=== PATIENT | male | born 1935 | race Caucasian/White ===

== ENCOUNTER 2019-08-06 15:24 | Outpatient (CLI) | payer MEDICARE ==
--- NOTE | 2019-08-06 15:53 | RAD ---
EXAM: Lumbar spine: 4 views INDICATIONS: Sacroiliac inflammation. Low back pain. COMPARISON: None. FINDINGS: Scoliotic curvature with convexity to right measured at 26 degrees degenerative changes wit h spurring. Mild disc narrowing. Facet hypertrophy. No evidence of spondylolisthesis. Bilateral compression of the L2 vertebra on the left due to scoliotic curvature. IMPRESSION: Scoliosis with degenerative changes as described.
== END 2019-08-06 15:25 | disposition home or self-care (01) ==
LOC: SCSRAD 15:24
PROVIDERS: ATTEND Family Medicine
DX: M46.1 Sacroiliitis, not elsewhere classified (principal); M41.9 Scoliosis, unspecified; M47.816 Spondylosis without myelopathy or radiculopathy, lumbar region
CPT/HCPCS: 72110

== ENCOUNTER 2022-03-07 10:28 | Outpatient (CLI) | payer MEDICARE | END 2022-03-07 10:29 | disposition home or self-care (01) | LOC: SCSCT 10:28 | PROVIDERS: ATTEND Family Medicine | DX: R51.9 Headache, unspecified (principal) | CPT/HCPCS: 70450 ==

== ENCOUNTER 2022-06-22 08:41 | Outpatient (CLI) | payer OTHER ==
[2022-06-22] MEDS ORDERED: Iopamidol 370 76% 100 ML VIAL ONE (09:54)
== END 2022-06-22 08:42 | disposition home or self-care (01) ==
LOC: CT 08:41
PROVIDERS: ATTEND Urology
DX: C61 Malignant neoplasm of prostate (principal)
CPT/HCPCS: 74177; 78306; 82565; A9503; Q9967

== ENCOUNTER 2022-10-02 07:55 | Inpatient (IN) | payer MEDICARE, OTHER ==
[2022-10-02] MEDS ORDERED: FENTANYL 50 MCG/ML 1 ML VIAL ONE ×3 (08:22→12:03)
[2022-10-02] MEDS ORDERED: Ondansetron PF 4 MG/2 ML Vial ONE (08:37)
[2022-10-02 09:14] LABS: #Eosinphils 0.1 thou/uL (0.0-0.7); #Lymphocytes 1.3 thou/uL (1.20-3.40); #Monocytes 0.9 thou/uL (0.11-0.59); #Neutrophils 3.9 thou/uL (1.40-6.50); %Basophils 0.3 % (0.0-1.0); %Eosinophils 1.1 % (0.0-10.0); %Lymphocytes 20.9 % (21.0-51.0); %Monocytes 13.7 % (0.0-10.0); Hemoglobin 17.4 g/dL (14.0-18.0); Mean Corpuscular HGB CONC 33.6 g/dL (32.0-36.0); Mean Corpuscular Hemoglobin 33.5 pg (27.0-31.0); Mean Corpuscular Volume 99.7 fl (78.0-98.0); Mean Platelet Volume 7.5 fL (7.4-10.4); Platelet Count 150 10x3/uL (130-400); RBC Distribution Width 12.3 % (11.5-14.5); Red Blood Cell (RBC) Count 5.18 mill/uL (4.70-6.10); White Blood Cell (WBC) Count 6.2 10x3/uL (4.8-10.8)
[2022-10-02 09:34] LABS: ALT (SGPT) 46 U/L (8-55); AST (SGOT) 55 U/L (5-34); Albumin 4.3 g/dL (3.4-4.8); Alkaline Phosphatase 107 U/L (40-110); Anion Gap 21 mmol/L (10-20); BUN (Urea Nitrogen) 13 mg/dL (8.4-25.7); Bilirubin, Total 0.7 mg/dL (0.2-1.2); Calc. Creatinine Clearance 0 mL/min (70-130); Calcium 10.3 mg/dL (7.8-10.44); Carbon Dioxide 23 mmol/L (23-31); Chloride 102 mmol/L (98-107); Estimated GFR 53; Globulin 3.1 g/dL (2.4-3.5); Glucose 94 mg/dL (83-110); Lipase 27 U/L (8-78); Potassium 4.5 mmol/L (3.5-5.1); Protein, Total 7.4 g/dL (5.8-8.1); Sodium 141 mmol/L (136-145)
[2022-10-02 11:03] LABS: Bilirubin Negative (Negative); Blood, Urine Trace (Negative); Clarity Turbid (Clear); Glucose, Urine (Dipstick) Normal (Negative); Ketone, Urine Trace mg/dL (Negative); Leukocyte Negative Leu/uL (Negative); Nitrite Negative (Negative); Protein, Urine (Dipstick) 30 mg/dL (Neg-Trace); Squamous Epithelial 0-3 HPF (0-3); Urobilinogen Normal mg/dL (Less than 2); pH, Urine 8.5 (5.0-9.0)
[2022-10-02 11:10] LABS: Bacteria/HPF 1+ HPF (None Seen); Specific Gravity, Urine 1.046 (1.002-1.036)
[2022-10-02 11:22] LABS: Actual Bicarbonate (HCO3v) 29 mEq/L (22-28); Base Excess 3.6 mEq/L (-2.0 to +3.0); Calcium, Ionized (venous) 1.16 mmol/L (1.16-1.32); Chloride (VBG) 101 mmol/L (98-106); Hemoglobin (Hb) 13.5 g/dL (12.6-17.4); Potassium (VBG) 4.67 mmol/L (3.70-5.30)
[2022-10-02] MEDS ORDERED: Acetaminophen 650 MG Suppository PR PRN (11:54)
[2022-10-02] MEDS ORDERED: Sodium Chloride 0.9% 1,000 ML IV SCH (12:00)
[2022-10-02 12:27] LABS: Lactic Acid 2.9 mmol/L (0.5-2.2)
[2022-10-02] MEDS ORDERED: Iopamidol-370 76% 500 ML 1 ML ONE (13:46)
[2022-10-02 14:12] VITALS: BMI 24.3
[2022-10-02] MEDS: Sodium Chloride 0.9% 1,000 ML IV SCH (14:38)
[2022-10-02] MEDS: FENTANYL 50 MCG/ML 1 ML VIAL SLOW IVP PRN ×4 (15:06→23:58)
[2022-10-03] MEDS: Sodium Chloride 0.9% 1,000 ML IV SCH ×4 (03:52→20:39)
[2022-10-03] MEDS: FENTANYL 50 MCG/ML 1 ML VIAL SLOW IVP PRN ×4 (04:16→14:12)
[2022-10-03 06:57] LABS: Hemoglobin 13.6 g/dL (14.0-18.0); Mean Corpuscular Hemoglobin 32.7 pg (27.0-31.0); Mean Corpuscular Volume 99.2 fl (78.0-98.0); Mean Platelet Volume 7.2 fL (7.4-10.4); Platelet Count 170 10x3/uL (130-400); RBC Distribution Width 12.1 % (11.5-14.5); Red Blood Cell (RBC) Count 4.16 mill/uL (4.70-6.10); White Blood Cell (WBC) Count 6.3 10x3/uL (4.8-10.8)
[2022-10-03 07:16] LABS: Anion Gap 14 mmol/L (10-20); BUN (Urea Nitrogen) 13 mg/dL (8.4-25.7); Calc. Creatinine Clearance 45 mL/min (70-130); Calcium 8.9 mg/dL (7.8-10.44); Carbon Dioxide 27 mmol/L (23-31); Chloride 105 mmol/L (98-107); Estimated GFR 61; Glucose 110 mg/dL (83-110); Potassium 3.7 mmol/L (3.5-5.1); Sodium 142 mmol/L (136-145)
[2022-10-03 08:24] LABS: Band 3 % (5-11); Eosinophils 1 % (0-10); Lymphocytes 13 % (21-51); MDiff Complete? YES; Monocytes 13 % (0-10); Neutrophil 69 % (42-75); RBC Morphology Normal
[2022-10-03] MEDS: Pantoprazole 40 MG VIAL IVP SCH (09:08)
[2022-10-03] MEDS: Ondansetron PF 4 MG/2 ML Vial IVP PRN ×2 (09:08→14:12)
[2022-10-03] MEDS ORDERED: Sodium Chloride 0.9% 500 ML IV SCH (11:30)
[2022-10-04] MEDS: Sodium Chloride 0.9% 1,000 ML IV SCH ×5 (03:09→21:59)
[2022-10-04 07:26] LABS: Hemoglobin 12.1 g/dL (14.0-18.0); Mean Corpuscular HGB CONC 32.5 g/dL (32.0-36.0); Mean Corpuscular Hemoglobin 32.8 pg (27.0-31.0); Mean Platelet Volume 7.8 fL (7.4-10.4); Platelet Count 162 10x3/uL (130-400); RBC Distribution Width 12.3 % (11.5-14.5); White Blood Cell (WBC) Count 6.2 10x3/uL (4.8-10.8)
[2022-10-04] MEDS: FENTANYL 50 MCG/ML 1 ML VIAL SLOW IVP PRN (07:26)
[2022-10-04 07:44] LABS: ALT (SGPT) 31 U/L (8-55); AST (SGOT) 53 U/L (5-34); Albumin 3.6 g/dL (3.4-4.8); Alkaline Phosphatase 86 U/L (40-110); Anion Gap 15 mmol/L (10-20); BUN (Urea Nitrogen) 18 mg/dL (8.4-25.7); Bilirubin, Total 0.6 mg/dL (0.2-1.2); Calc. Creatinine Clearance 43 mL/min (70-130); Calcium 8.5 mg/dL (7.8-10.44); Carbon Dioxide 25 mmol/L (23-31); Chloride 110 mmol/L (98-107); Estimated GFR 56; Globulin 2.5 g/dL (2.4-3.5); Glucose 94 mg/dL (83-110); Potassium 3.6 mmol/L (3.5-5.1); Protein, Total 6.1 g/dL (5.8-8.1); Sodium 146 mmol/L (136-145)
[2022-10-04] MEDS ORDERED: Lidocaine 2% 6 ML SYR TOP PRN (08:57)
[2022-10-04 09:58] LABS: Eosinophils 1 % (0-10); Lymphocytes 12 % (21-51); MDiff Complete? YES; Monocytes 15 % (0-10); Neutrophil 72 % (42-75); RBC Morphology Normal
[2022-10-04] MEDS ORDERED: LIDOCAINE 5% CREAM TOP SCH (13:15)
[2022-10-04] MEDS: Lidocaine 5% Patch TD SCH (13:31)
[2022-10-04] MEDS: Enoxaparin Sodium 30 MG/0.3 ML SYRINGE SC SCH (13:32)
[2022-10-04] MEDS: Pantoprazole 40 MG VIAL IVP SCH (15:55)
[2022-10-05] MEDS: Transdermal Patch Removal TOP SCH (01:39)
[2022-10-05] MEDS: FENTANYL 50 MCG/ML 1 ML VIAL SLOW IVP PRN ×2 (02:14→06:15)
[2022-10-05] MEDS: Sodium Chloride 0.9% 1,000 ML IV SCH ×5 (05:11→22:22)
[2022-10-05 06:55] LABS: Anion Gap 12 mmol/L (10-20); BUN (Urea Nitrogen) 14 mg/dL (8.4-25.7); Calc. Creatinine Clearance 50 mL/min (70-130); Calcium 8.5 mg/dL (7.8-10.44); Carbon Dioxide 22 mmol/L (23-31); Chloride 111 mmol/L (98-107); Estimated GFR 69; Glucose 97 mg/dL (83-110); Potassium 3.4 mmol/L (3.5-5.1); Sodium 142 mmol/L (136-145)
[2022-10-05 06:56] LABS: Hemoglobin 11.3 g/dL (14.0-18.0); Mean Corpuscular HGB CONC 32.8 g/dL (32.0-36.0); Mean Platelet Volume 7.3 fL (7.4-10.4); Platelet Count 158 10x3/uL (130-400); Red Blood Cell (RBC) Count 3.42 mill/uL (4.70-6.10)
[2022-10-05] MEDS: Gabapentin 300 MG CAP PO SCH ×4 (10:18→20:44)
[2022-10-05] MEDS: Pantoprazole 40 MG VIAL IVP SCH (10:19)
[2022-10-05] MEDS: Enoxaparin Sodium 30 MG/0.3 ML SYRINGE SC SCH (10:19)
[2022-10-05 11:28] LABS: Band 3 % (5-11); Eosinophils 3 % (0-10); Lymphocytes 20 % (21-51); MDiff Complete? YES; Monocytes 9 % (0-10); Neutrophil 65 % (42-75); Platelet Morphology Comment Appears Adequate; Polychromasia SLIGHT = 2-3 cells (100X) (0-2/hpf)
[2022-10-05] MEDS: Lidocaine 5% Patch TD SCH (15:31)
[2022-10-06] MEDS: Transdermal Patch Removal TOP SCH (02:49)
[2022-10-06] MEDS: Sodium Chloride 0.9% 1,000 ML IV SCH ×4 (05:16→22:12)
[2022-10-06 06:16] LABS: Anion Gap 10 mmol/L (10-20); BUN (Urea Nitrogen) 8 mg/dL (8.4-25.7); Calc. Creatinine Clearance 62 mL/min (70-130); Calcium 8.4 mg/dL (7.8-10.44); Carbon Dioxide 23 mmol/L (23-31); Chloride 110 mmol/L (98-107); Estimated GFR 84; Glucose 93 mg/dL (83-110); Potassium 3.3 mmol/L (3.5-5.1); Sodium 140 mmol/L (136-145)
[2022-10-06 06:31] LABS: Hemoglobin 11.1 g/dL (14.0-18.0); Mean Corpuscular HGB CONC 32.8 g/dL (32.0-36.0); Mean Corpuscular Hemoglobin 32.5 pg (27.0-31.0); Mean Corpuscular Volume 99.2 fl (78.0-98.0); Mean Platelet Volume 7.6 fL (7.4-10.4); Platelet Count 138 10x3/uL (130-400); RBC Distribution Width 11.9 % (11.5-14.5)
[2022-10-06] MEDS: Gabapentin 300 MG CAP PO SCH ×3 (09:20→20:34)
[2022-10-06] MEDS: Enoxaparin Sodium 40 MG/0.4 ML SYRINGE SC SCH (09:20)
[2022-10-06] MEDS: Lidocaine 5% Patch TD SCH (09:21)
[2022-10-06] MEDS: Pantoprazole 40 MG VIAL IVP SCH (09:21)
[2022-10-06 11:28] LABS: Band 2 % (5-11); Eosinophils 2 % (0-10); Lymphocytes 26 % (21-51); MDiff Complete? YES; Monocytes 10 % (0-10); Neutrophil 59 % (42-75); Reactive Lymphocytes 1 % (0-10)
[2022-10-06] MEDS: FENTANYL 50 MCG/ML 1 ML VIAL SLOW IVP PRN (12:18)
[2022-10-06] MEDS ORDERED: Sodium Chloride 0.9% 500 ML IV SCH (12:45)
[2022-10-06] MEDS ORDERED: Potassium Chloride 20 MEQ TAB PO SCH (13:00)
[2022-10-07] MEDS: Transdermal Patch Removal TOP SCH (04:48)
[2022-10-07] MEDS: Sodium Chloride 0.9% 1,000 ML IV SCH ×3 (04:48→21:32)
[2022-10-07 07:15] LABS: Hemoglobin 12.2 g/dL (14.0-18.0); Mean Corpuscular HGB CONC 32.6 g/dL (32.0-36.0); Mean Corpuscular Hemoglobin 33.2 pg (27.0-31.0); Platelet Count 127 10x3/uL (130-400); RBC Distribution Width 12.2 % (11.5-14.5); Red Blood Cell (RBC) Count 3.68 mill/uL (4.70-6.10); White Blood Cell (WBC) Count 3.9 10x3/uL (4.8-10.8)
[2022-10-07 07:21] LABS: Anion Gap 10 mmol/L (10-20); BUN (Urea Nitrogen) 7 mg/dL (8.4-25.7); Calc. Creatinine Clearance 66 mL/min (70-130); Calcium 8.6 mg/dL (7.8-10.44); Carbon Dioxide 24 mmol/L (23-31); Chloride 110 mmol/L (98-107); Estimated GFR 85; Glucose 96 mg/dL (83-110); Potassium 3.3 mmol/L (3.5-5.1); Sodium 141 mmol/L (136-145)
[2022-10-07 07:23] LABS: Band 1 % (5-11); Eosinophils 1 % (0-10); Lymphocytes 16 % (21-51); MDiff Complete? YES; Monocytes 14 % (0-10); Neutrophil 68 % (42-75); Platelet Morphology Comment Appears Decreased; RBC Morphology Normal
[2022-10-07] MEDS: Enoxaparin Sodium 40 MG/0.4 ML SYRINGE SC SCH (09:14)
[2022-10-07] MEDS: Gabapentin 300 MG CAP PO SCH ×3 (09:14→20:14)
[2022-10-07] MEDS: Pantoprazole 40 MG VIAL IVP SCH (09:16)
[2022-10-07] MEDS: Lidocaine 5% Patch TD SCH (09:16)
[2022-10-07] MEDS: Potassium Chloride 20 MEQ in Premix Bag 1 BAG IVPB SCH ×2 (16:24→18:34)
[2022-10-07] MEDS ORDERED: Famotidine 20 MG TAB PO SCH (19:45)
[2022-10-08] MEDS: Transdermal Patch Removal TOP SCH (01:11)
[2022-10-08] MEDS: Sodium Chloride 0.9% 1,000 ML IV SCH (05:18)
[2022-10-08] MEDS: Gabapentin 300 MG CAP PO SCH ×2 (09:20→13:50)
[2022-10-08] MEDS: Enoxaparin Sodium 40 MG/0.4 ML SYRINGE SC SCH (09:20)
[2022-10-08] MEDS: Pantoprazole 40 MG VIAL IVP SCH (09:20)
[2022-10-08 12:40] VITALS: BP 138/73; TEMP 97.8
[2022-10-08] MEDS: Lidocaine 5% Patch TD SCH (13:51)
== END 2022-10-08 14:20 | disposition home or self-care (01) | DRG 389 ==
LOC: ERS 07:55 → SURG B 11:42 → OBSVTOIN 11:42
PROVIDERS: ADMIT Hospitalist; ATTEND Hospitalist
PROC: 0D9670Z Drainage of Stomach with Drainage Device, Via Natural or Artificial Opening (ICD-10-PCS; principal; 2022-10-02)
DX: K56.600 Partial intestinal obstruction, unspecified as to cause (principal); E87.20 Acidosis, unspecified; Z20.822 Contact with and (suspected) exposure to COVID-19; F03.90 Unspecified dementia, unspecified severity, without behavioral disturbance, psychotic disturbance, mood disturbance, and anxiety; E78.5 Hyperlipidemia, unspecified; C61 Malignant neoplasm of prostate; F32.A Depression, unspecified; E86.9 Volume depletion, unspecified; Z98.890 Other specified postprocedural states; Z88.5 Allergy status to narcotic agent
CPT/HCPCS: 36415; 71045; 74018; 74177; 74250; 80048; 80053; 81003; 81015; 82805; 83605; 83690; 85025; 86900; 86901; 93005; 96374; 96375; 96376; C9113; J1650; J2405; J3010; J3480; J7030; J7050; Q9967; U0003; U0005